=== PATIENT | female | born 1940 | race Caucasian/White ===

== ENCOUNTER 2016-08-10 03:09 | Emergency (ER) | payer MEDICARE, BC ==
[2016-08-10 03:20] VITALS: BP 158/62; RESP 20; TEMP 96.3
[2016-08-10] MEDS ORDERED: CODEINE/GUAIFENESIN 5 ML SOL PO ONE (03:31)
[2016-08-10] MEDS ORDERED: BENZONATATE 200 MG SGL PO PRN (03:32)
[2016-08-10] MEDS ORDERED: ALBUTEROL NEB SOL 2.5MG/3ML 1 VIAL SOL NEB ONE (03:41)
[2016-08-10] MEDS ORDERED: GUAIFENESIN 200 MG/10 ML SOL PO ONE (03:45)
[2016-08-10] MEDS ORDERED: AMOXIL/CLAVULANATE 875/125 TAB PO SCH (03:45)
[2016-08-10] MEDS ORDERED: ALBUTEROL NEB SOL 2.5MG/3ML 1 VIAL SOL ONE (03:47)
[2016-08-10] MEDS ORDERED: AUGMENTIN(FRIDGE) 400 MG/5 ML ONE (03:48)
[2016-08-10] MEDS ORDERED: AUGMENTIN(FRIDGE) 400 MG/5 ML PO ONE (03:48)
[2016-08-10] MEDS ORDERED: DM/GUAIFENESIN SYRUP 10 ML SYRP ONE (03:52)
[2016-08-10 04:51] VITALS: PULSE 80; O2SAT 94
== END 2016-08-10 04:40 | disposition home or self-care (01) | DRG 203 ==
LOC: ED 03:09
DX: J20.9 Acute bronchitis, unspecified (principal)
CPT/HCPCS: 99283; J7603

== ENCOUNTER 2017-09-10 11:37 | Emergency (ER) | payer MEDICARE, BC ==
[2017-09-10 12:03] VITALS: TEMP 98
[2017-09-10] MEDS ORDERED: SODIUM CHLORIDE 0.9% 1000ML 1,000 ML IV ONE (12:16)
[2017-09-10] MEDS ORDERED: LORAZEPAM 2 MG/ML SOL IV ONE (12:17)
[2017-09-10 12:32] LABS: BASOPHILS % (AUTO) 2 % (0-3); EOSINOPHILS % (AUTO) 2 % (0-9); HEMATOCRIT 43 % (35-47); HEMOGLOBIN 14.8 gm/dl (12.0-15.5); LYMPHOCYTES % (AUTO) 15.3 % (10-50); MEAN CORPUSCULAR HEMOGLOBIN 31.5 pg (27.0-32.0); MEAN CORPUSCULAR HGB CONC 34.1 gm/dl (32.0-36.0); MEAN CORPUSCULAR VOLUME 92 fL (81-99); NEUTROPHILS % (AUTO) 74.9 % (37-80)
[2017-09-10] MEDS ORDERED: LORAZEPAM 2 MG/ML SOL ONE (12:40)
[2017-09-10 12:59] LABS: BILIRUBIN,TOTAL 0.6 mg/dl (0.2-1.0); CALCIUM 8.7 mg/dl (8.5-10.1); CARBON DIOXIDE 41.4 mEq/L (21-32); CREATININE 1.09 mg/dl (0.60-1.00); MAGNESIUM 1.6 mg/dl (1.8-2.4); POTASSIUM 4.7 mMol/L (3.5-5.1); THYROID STIMULATING HORMONE 1.041 uIU/ml (0.358-3.740); TOTAL PROTEIN 7.2 gm/dl (6.4-8.2)
[2017-09-10 14:21] LABS: ABG PH 7.41 (7.35-7.45)
[2017-09-10 15:29] LABS: APPEARANCE,URINE Clear; BILIRUBIN,URINE NEGATIVE (NEGATIVE); COLOR,URINE Yellow; GLUCOSE, URINE (UA) NEGATIVE (NEGATIVE); KETONES,URINE NEGATIVE (NEGATIVE); LEUKOCYTE ESTERASE ,URINE NEGATIVE (NEGATIVE); NITRATE,URINE NEGATIVE (NEGATIVE); OCCULT BLOOD,URINE NEGATIVE (NEG-TRACE); PH,URINE 8.5; UROBILINOGEN,URINE 0.2 (0.2-1.0 EU)
[2017-09-10 16:04] LABS: BACTERIA TRACE (< 1+); CRYSTALS NEGATIVE (0-3 AVE/HPF); RBC,URINE 0-1 (0-3AV/HPF)
[2017-09-10 16:22] VITALS: BP 125/67; PULSE 71; RESP 20; O2SAT 94
== END 2017-09-10 16:10 | disposition home or self-care (01) | DRG 206 ==
LOC: ED 11:37
DX: E66.2 Morbid (severe) obesity with alveolar hypoventilation (principal); R06.00 Dyspnea, unspecified; Z68.42 Body mass index [BMI] 45.0-49.9, adult; R09.02 Hypoxemia
CPT/HCPCS: 36415; 36600; 71046; 80053; 81001; 82803; 83735; 83880; 84443; 84484; 85025; 85378; 93005; 99285; J2060

== ENCOUNTER 2018-03-12 07:25 | Emergency (ER) | payer MEDICARE, BC ==
[2018-03-12 07:33] VITALS: TEMP 96.6
[2018-03-12 08:35] VITALS: BP 140/52; PULSE 68; RESP 18; O2SAT 94
== END 2018-03-12 09:08 | disposition home or self-care (01) | DRG 204 ==
LOC: ED 07:25
DX: R05 Cough (principal)
CPT/HCPCS: 71045; 99282; 99283